=== PATIENT | female | born 1980 | race Caucasian/White ===

== ENCOUNTER 2017-12-23 07:41 | Emergency (ER) | payer SELFPAY, OTHER ==
[2017-12-23] MEDS: ONDANSETRON (ODT) 4 MG TAB ODT (08:26)
== END 2017-12-23 08:38 | disposition home or self-care (01) ==
LOC: FTE 07:41
DX: R11.10 Vomiting, unspecified (principal); R19.7 Diarrhea, unspecified
CPT/HCPCS: 99283